=== PATIENT | female | born 1980 | race Caucasian/White ===

== ENCOUNTER 2017-01-02 22:39 | Emergency (ER) | payer OTHER ==
[~2017-01-02] VITALS: Ht 170.2 cm; Wt 65.6 kg
[~2017-01-02 22:39] MED LIST: ALLERGY RELIEF10 M1; AMBIEN10 MG PO; ATIVAN; ATIVAN1 MG; AVIANE1 EACH PO; CELEXA10 MG PO; CITALOPRAM HBR20 MG PO; CYCLOBENZAPRINE5 MG PO; DECADRON1 MG PO; FAMOTIDINE20 MG PO; HEARTBURN150 MG; JUNEL1 EACH PO; METHYLPREDNISOL32 MG PO; MIRALAX17 GM PO; MOTRIN800 MG PO; NAPROSYN500 MG PO; NAPROXEN500 MG PO; NORCO 5/3251 TABLET PO; PROBIOTIC1 EAC2 PO; TRAZODONE HCL50 MG PO; VALIUM2 MG PO; VALIUM5 MG PO; VICODIN 5-3001 EACH PO; ZOLPIDEM TARTRAT5 MG PO; [UNRECOGNIZED DRUG - OTHER]; ranitidine
[2017-01-02 23:28] LABS: EOSINOPHIL (%) 2.3 % (0-5); EOSINOPHIL COUNT 0.2 K/uL (0-0.3); HEMATOCRIT 35.6 % (36.0-46.0); IMMATURE GRANULOCYTE (%) 0.2 % (0.0-0.7); INSTRUMENT ABS NEUTROPHIL CT 5.9 K/uL; MCH 29.5 PG (29.0-34.0); MCHC 34.3 G/DL (30.0-36.0); MEAN PLAT.VOLUME 10.1 uM^3 (9.5-12.4); MONOCYTE (%) 8.7 % (3-12); MONOCYTE COUNT 0.8 K/uL (0-0.8); NEUTROPHIL (%) 65.8 % (45-76); NEUTROPHIL COUNT 5.9 K/uL (1.8-6.4); PLATELET COUNT 277 K/uL (156-360); RBC DIS.WIDTH-CV 12.8 % (11.8-14.6); RBC DIS.WIDTH-SD 39.8 % (39-53); RED BLOOD COUNT 4.14 M/uL (3.80-5.20); WHITE BLOOD COUNT 8.9 K/uL (4.1-10.2)
[2017-01-02 23:40] LABS: CHLORIDE 107 mEq/L (99-109); POTASSIUM 3.2 mEq/L (3.7-5.4); SODIUM 138 mEq/L (136-147)
[2017-01-02 23:41] LABS: GLUCOSE 115 mg/dL (70-99)
[2017-01-02 23:43] LABS: ANION GAP 12 MEQ/L (2-14)
[2017-01-02 23:45] LABS: GFR ESTIMATE (CALCULATED) > 59 mL/min/; SERUM ETHYL ALCOHOL < 10 mg/dL
[2017-01-02 23:46] LABS: UREA NITROGEN (BUN) 9 mg/dL (9-23)
[2017-01-02 23:48] LABS: LIPASE 28 U/L (1.0-51.0)
[2017-01-02 23:55] LABS: QUANTITATIVE HCG < 4.0 MIU/ML
[2017-01-03] MEDS ORDERED: NORCO 5/3251 TABLET PO (00:31)
[2017-01-03 00:52] VITALS: BP 127/74
== END 2017-01-03 01:01 | disposition home or self-care (01) ==
LOC: EME → EDBD 22:39 → EME 01-03 01:01
PROVIDERS: Emergency Medicine
DX: S80.01XA Contusion of right knee, initial encounter (principal); S60.222A Contusion of left hand, initial encounter; S96.911A Strain of unspecified muscle and tendon at ankle and foot level, right foot, initial encounter; V23.4XXA Motorcycle driver injured in collision with car, pick-up truck or van in traffic accident, initial encounter; Y92.830 Public park as the place of occurrence of the external cause; K21.9 Gastro-esophageal reflux disease without esophagitis; F32.9 Major depressive disorder, single episode, unspecified; F41.9 Anxiety disorder, unspecified
CPT/HCPCS: 71010; 73130; 73564; 73610; 80048; 83690; 84702; 85025; 86900; 86901; 99281; 99285; G0480; J2060; J2270; J2405; J7030

== ENCOUNTER 2017-01-09 12:35 | Emergency (ER) | payer OTHER ==
[~2017-01-09] VITALS: Ht 167.6 cm; Wt 62.2 kg
[2017-01-09 15:40] LABS: PROTHROMBIN TIME 10.4 (9.2-11.2); PTT 26.1 (25-32)
[2017-01-09 15:58] LABS: HEMATOCRIT 37.2 % (36.0-46.0); MCH 29.3 PG (29.0-34.0); MCHC 32.8 G/DL (30.0-36.0); MCV 89.4 FL (83-99); MEAN PLAT.VOLUME 10.5 uM^3 (9.5-12.4); PLATELET COUNT 229 K/uL (156-360); RBC DIS.WIDTH-CV 12.9 % (11.8-14.6); RBC DIS.WIDTH-SD 42.4 % (39-53); RED BLOOD COUNT 4.16 M/uL (3.80-5.20); WHITE BLOOD COUNT 8.2 K/uL (4.1-10.2)
[2017-01-09 16:06] LABS: CHLORIDE 103 mEq/L (99-109); SODIUM 134 mEq/L (136-147)
[2017-01-09 16:07] LABS: POTASSIUM 4.1 mEq/L (3.7-5.4)
[2017-01-09 16:08] LABS: GLUCOSE 81 mg/dL (70-99)
[2017-01-09 16:09] LABS: ANION GAP 8 MEQ/L (2-14)
[2017-01-09 16:10] LABS: TOTAL BILIRUBIN 0.5 mg/dL (0.0-1.0)
[2017-01-09 16:11] LABS: ALKALINE PHOSPHATASE 94 IU/L (3-129)
[2017-01-09 16:12] LABS: GFR ESTIMATE (CALCULATED) > 59 mL/min/
[2017-01-09 16:13] LABS: UREA NITROGEN (BUN) 12 mg/dL (9-23)
[2017-01-09] MEDS ORDERED: LOVENOX60 MG/0.6 SC (16:30)
[2017-01-09] MEDS ORDERED: COUMADIN5 MG PO (16:31)
[2017-01-09 16:59] VITALS: BP 110/75
== END 2017-01-09 17:01 | disposition home or self-care (01) ==
LOC: EME 12:35
PROVIDERS: Nurse Practitioner Family
DX: I82.401 Acute embolism and thrombosis of unspecified deep veins of right lower extremity (principal); S97.01XD Crushing injury of right ankle, subsequent encounter; K21.9 Gastro-esophageal reflux disease without esophagitis; F32.9 Major depressive disorder, single episode, unspecified; V00.148D Other scooter (nonmotorized) accident, subsequent encounter
CPT/HCPCS: 80053; 85027; 85610; 85730; 93971; 99281; 99283; J1650

== ENCOUNTER 2017-05-03 18:17 | Emergency (ER) | payer OTHER ==
[~2017-05-03] VITALS: Ht 167.6 cm; Wt 61.4 kg
[~2017-05-03 18:17] MED LIST changes: +COUMADIN5 MG PO; +LOVENOX60 MG/0.6 SC
[2017-05-03] MEDS ORDERED: FLEXERIL10 MG PO (19:34)
[2017-05-03] MEDS ORDERED: MOTRIN800 MG PO (19:34)
[2017-05-03 19:43] VITALS: BP 120/74
== END 2017-05-03 19:44 | disposition home or self-care (01) ==
LOC: EME 18:17
DX: F07.81 Postconcussional syndrome (principal); S80.01XA Contusion of right knee, initial encounter; S80.02XA Contusion of left knee, initial encounter; V28.0XXA Motorcycle driver injured in noncollision transport accident in nontraffic accident, initial encounter; K21.9 Gastro-esophageal reflux disease without esophagitis; F32.9 Major depressive disorder, single episode, unspecified; Z86.718 Personal history of other venous thrombosis and embolism; Z79.01 Long term (current) use of anticoagulants; Z88.8 Allergy status to other drugs, medicaments and biological substances
CPT/HCPCS: 70450; 99281; 99285